=== PATIENT | male | born 1990 | race Caucasian/White ===

== ENCOUNTER 2017-11-01 09:32 | Emergency (ER) | payer MEDICAID ==
[2017-11-01 10:50] LABS: BASOPHILE ABSOLUTE 0.1 Th/cumm (0-0.2); EOSINOPHILE ABSOLUTE 0.4 Th/cmm (0.1-0.4); HEMOGLOBIN 15.3 gm/dL (12-16); LYMPHOCYTE ABSOLUTE 1.8 Th/cmm (1.5-3.0); MONOCYTE ABSOLUTE 0.5 Th/cmm (0.3-1.0); NEUTROPHILE ABSOLUTE 4.5 Th/cmm (1.8-8.0); PLATELET COUNT 309 Th/cmm (150-400); WHITE BLOOD COUNT 7.3 Th/cmm (4.8-10.8)
[2017-11-01 10:52] LABS: % BASOPHILS 0.9 % (0.0-2.0); % EOSINOPHILS 4.9 % (0.0-5.0); % LYMPHOCYTES 24.5 % (20.0-50.0); % MONOCYTES 6.7 % (2.0-10.0); HEMATOCRIT 44.9 % (41.0-60); MEAN CELL VOLUME 89.3 fl (80-99); MEAN CORPUSCULAR HEMOGLOBIN 30.4 pg (26.0-30.0); MEAN CORPUSCULAR HGB CONC 34.1 pg (28.0-36.0); MEAN PLATELET VOLUME 7.9 fl; RED BLOOD COUNT 5.03 Mil/cmm (4.30-5.70); RED CELL DISTRIBUTION WIDTH 11.3 % (11.5-20.0)
[2017-11-01 11:04] LABS: AMPHETAMINE URINE NEGATIVE (NEGATIVE); BARBITURATES URINE NEGATIVE (NEGATIVE); BENZODIAZEPINES QUAL URINE NEGATIVE (NEGATIVE); CANNABINOID THC NEGATIVE (NEGATIVE); COCAINE METABOLITE QUAL URINE NEGATIVE (NEGATIVE); METHADONE URINE NEGATIVE (NEGATIVE); METHAMPHETAMINES QUAL URINE NEGATIVE (NEGATIVE); OPIATES (MORPHINE) QUAL. URINE NEGATIVE (NEGATIVE); PHENCYCLIDINE (PCP) URINE NEGATIVE (NEGATIVE); TRICYCLICS (TCA) QUAL. URINE NEGATIVE (NEGATIVE)
[2017-11-01 11:07] LABS: ANION GAP 10.9 (7.0-16.0); BUN - UREA NITROGEN 10 mg/dL (7-25); CALCIUM SERUM 9.5 mg/dL (8.6-10.3); CARBON DIOXIDE 28.4 mEq/L (21.0-31.0); CHLORIDE 103 mEq/L (98-107); CREATININE - SERUM 0.8 mg/dL (0.7-1.3); GFR AFRICAN-AMERICAN > 60.0 ml/min (>90); GFR NON AFRICAN-AMERICAN > 60.0 ml/min; GLUCOSE 100 mg/dL (70-105); POTASSIUM SERUM 4.3 mEq/L (3.5-5.1); SODIUM SERUM 138 mEq/L (136-145)
--- NOTE | 2017-11-01 12:17 | ER Physician Documentation ---
DATE OF SERVICE: 11/01/2017 BED: #4. AGE: 27-year-old. Full code. The patient's lab results came back. All the lab results are normal. The patient ambulated well. Vital signs are normal. Everything else is stable. The patient had just a little touch of dizziness. Otherwise, there is no other problem, hence the patient is being discharged for home. No such medication is needed. I will give him a prescription for Antivert in case if he has any episodes of dizziness. The patient has been discharged by Micha and the patient is going home. JOB# [id number]
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
== END 2017-11-01 11:26 | disposition home or self-care (01) ==
LOC: ER 09:32
DX: R42 Dizziness and giddiness (principal); F17.210 Nicotine dependence, cigarettes, uncomplicated
CPT/HCPCS: 36415-UA; 80048-TC; 80307; 85025-TC; 93005